=== PATIENT | male | born 1985 | race African-American/Black ===

== ENCOUNTER 2020-11-07 10:14 | Emergency (ER) | payer OTHER ==
[~2020-11-07] VITALS: Ht 165.1 cm; Wt 67.1 kg
--- NOTE | 2020-11-07 10:58 | NUR ---
35 years old male alert, oriented x4 walking to er for wound recheck no infection, no drainage no foul odor, csm good d/c home with instructions after care reviewed understood.
== END 2020-11-07 11:07 | disposition home or self-care (01) ==
LOC: ER 10:14
DX: Z48.817 Encounter for surgical aftercare following surgery on the skin and subcutaneous tissue (principal); L03.011 Cellulitis of right finger
CPT/HCPCS: A4663

== ENCOUNTER 2020-11-21 10:11 | Emergency (ER) | payer OTHER ==
[~2020-11-21] VITALS: Ht 165.1 cm; Wt 66.7 kg
--- NOTE | 2020-11-21 10:43 | NUR ---
Dr Castaneda at the bedside for MSE.
--- NOTE | 2020-11-21 10:52 | NUR ---
Patient discharged to home in stable condition. Written and verbal after care instructions given. Patient verbalizes understanding of instructions. Stressed follow up or return to ER for worsening s/s.
[2020-11-21 10:53] VITALS: BP 123/64
== END 2020-11-21 10:54 | disposition home or self-care (01) ==
LOC: ER 10:12
DX: Z48.817 Encounter for surgical aftercare following surgery on the skin and subcutaneous tissue (principal)
CPT/HCPCS: A4663